=== PATIENT | male | born 1975 | race Caucasian/White ===

== ENCOUNTER 2016-05-04 22:10 | Emergency (ER) | payer BC ==
[~2016-05-04] VITALS: Ht 175.3 cm; Wt 97.5 kg
[2016-05-04 22:29] VITALS: BP 146/94
== END 2016-05-04 22:58 | disposition home or self-care (01) ==
LOC: ER 22:12
DX: R05 Cough (principal)
CPT/HCPCS: 99281; A4606; Z7610; Z7502